=== PATIENT | female | born 1995 | race Caucasian/White ===

== ENCOUNTER 2017-06-07 01:16 | Emergency (ER) | payer MEDICAID ==
[2017-06-07 01:21] VITALS: BP 123/79
--- NOTE | 2017-06-07 01:37 | EDPHY ---
H & P Stated Complaint: ETOH Time Seen by Provider: 06/07/17 01:26 HPI/ROS: Chief Complaint: Alcohol intoxication HPI: 22-year-old female being brought in for friends for alcohol intoxication. They states there is concerned because the never seen her this intoxicated before. She has not been vomiting. She did not pass out. No falls. Did not hit her head. She has been ambulating unassisted. Has a history of anemia but no other medical problems. Currently without complaint. ROS: 10 point Review of Systems is negative except as noted in the HPI. PMH: Anemia Social History: No smoking, occasional alcohol, no recreational drug use Family History: non-contributory Physical Exam: Gen: Awake, Alert, No Distress, slurred speech HEENT: Nose: no rhinorrhea Eyes: PERRLA, EOMI Mouth: Moist mucosa Neck: Supple, no JVD Chest: nontender, lungs clear to auscultation Heart: S1, S2 normal, no murmur Abd: Soft, non-tender, no guarding Back: no CVA tenderness, no midline tenderness Ext: no edema, non-tender Skin: no rash Neuro: CN II-XII intact, Sensation grossly intact, Strength 5/5 in bilateral upper and lower extremities - Personal History LMP (Females 10-55): Now Current Tetanus Diphtheria and Acellular Pertussis (TDAP): Yes - Medical/Surgical History Hx Asthma: No Hx Chronic Respiratory Disease: No Hx Diabetes: No Hx Cardiac Disease: No Hx Renal Disease: No Hx Cirrhosis: No Hx Alcoholism: No Hx HIV/AIDS: No Hx Splenectomy or Spleen Trauma: No - Social History Smoking Status: Never smoked Constitutional: Initial Vital Signs Temperature (C) 36.8 C 06/07/17 01:20 Heart Rate 85 06/07/17 01:20 Respiratory Rate 18 06/07/17 01:20 Blood Pressure 123/79 H 06/07/17 01:20 O2 Sat (%) 97 06/07/17 01:20 O2 Delivery Mode Room Air Allergies/Adverse Reactions: No Known Allergies Allergy (Unverified 06/07/17 01:17) Medical Decision Making ED Course/Re-evaluation: Patient is now awake and appropriate. Ambulating unassisted to the bathroom. No current complaints. Patient is tolerating oral fluids. Patient is ready for discharge with sober ride. Departure - Departure Disposition: Home, Routine, Self-Care Clinical Impression: Alcoholic intoxication Condition: Good Instructions: Alcohol Intoxication (ED) Referrals: Patient,NotPresent [Primary Care Provider] - As per Instructions
== END 2017-06-07 02:37 | disposition home or self-care (01) ==
DX: F10.129 Alcohol abuse with intoxication, unspecified (principal)

== ENCOUNTER 2018-04-03 01:43 | Emergency (ER) | payer OTHER, MEDICAID ==
[2018-04-03] MEDS ORDERED: ONDANSETRON 4 MG/2 ML VIAL IVP ONE (01:50)
[2018-04-03] MEDS ORDERED: NS 1,000 ML IV ONE (01:50)
[2018-04-03] MEDS ORDERED: ONDANSETRON 4 MG/2 ML VIAL ONE (01:51)
--- NOTE | 2018-04-03 01:53 | EDPHY ---
H & P Time Seen by Provider: 04/03/18 01:51 HPI/ROS: HPI CHIEF COMPLAINT: Alcohol Intoxication , vomiting, fall, facial injury HISTORY OF PRESENT ILLNESS: 23-year-old female she presents emergency room by private vehicle for acute alcohol intoxication. Reported by her friends that she wanted legal demetra's this evening and drank multiple margaritas. She now arrives to the emergency room highly intoxicated with alcohol on vomiting. At some point she did fall as she has significant abrasions to the right side her face and a right eyebrow hematoma. No laceration. Patient arrives highly intoxicated. History and review of systems limited due to patient's mental state. Past Medical History: Denies medical history Past Surgical History: Denies surgical history Social History: Alcohol this evening large amount. States she had multiple margaritas. Family History: Noncontributory ROS REVIEW OF SYSTEMS: Limited due to alcohol intoxication Exam Constitutional Intoxicated, triage nursing summary reviewed, vital signs reviewed, Sleepy, smells of alcohol Eyes normal conjunctivae and sclera, horizontal beating nystagmus consistent acute alcohol intoxication, otherwise pupils equal and react to light HENT head/neck: Right eyebrow hematoma. Multiple right-sided facial abrasions otherwise midface stable. Dentition intact, moist mucus membranes, no epistaxis, neck supple/ no meningismus, no raccoon eyes. Respiratory clear to auscultation bilaterally, normal breath sounds, no respiratory distress, no wheezing. Cardiovascular rate normal, regular rhythm, no murmur, no edema, distal pulses normal. Gastrointestinal soft, non-tender, no rebound, no guarding, normal bowel sounds, no distension, no pulsatile mass. Genitourinary no CVA tenderness. Musculoskeletal no midline vertebral tenderness, full range of motion, no calf swelling, no tenderness of extremities, no meningismus, good pulses, neurovascularly intact. Skin pink, warm, & dry, no rash, skin atraumatic. Neurologic sleepy, intoxicated with alcohol,, alert and oriented x 3, AAOx3, moves all 4 extremities equally, motor intact, sensory intact, CN II-XII intact , , normal vision, normal speech. Psychiatric normal mood/affect. Heme/Lymph/Immune no lymphadenopathy. Differential Diagnosis: Includes but is not limited to in a particular order acute alcohol intoxication, alcohol abuse, dehydration, electrolyte abnormality , nausea vomiting from acute alcohol intoxication Medical Decision Making: Plan for this patient IV establishment IV fluid bolus Zofran for nausea, check basic electrolytes, serum alcohol level, proceed with CT scan head without contrast and cervical spine without contrast given fall trauma alcohol intoxication. Re-evaluation: Serum alcohol level 283 at 3:22 a.m.. 0355: This patient had a CT scan head without contrast and CT cervical spine without contrast for trauma in the setting of acute alcohol intoxication. The patient fell and has a hematoma to her right eyebrow and abrasions of the right side her face. The CT scans are faxed to me at 3:29 a.m.. And by direct radiology and they are negative for acute traumatic injury. Patient re-evaluated 7:01 a.m. Patient was up ambulatory to the bathroom with a steady gait. She is now clinically sober she is sleepy but I do feel she is safe for discharge. Vital signs are stable. The patient had a CT scan head and neck without contrast for trauma as she fell and sustained a right eyebrow hematoma and right facial abrasions. The CT scans were negative for acute traumatic injury called to me by [facility]iology. I did certified genetic counselor the patient on her alcohol use as this was the 2nd ER visit for this. Source: Patient - Medical/Surgical History Hx Asthma: No Hx Chronic Respiratory Disease: No Hx Diabetes: No Hx Cardiac Disease: No Hx Renal Disease: No Hx Cirrhosis: No Hx Alcoholism: No Hx HIV/AIDS: No Hx Splenectomy or Spleen Trauma: No - Social History Smoking Status: Never smoked Constitutional: Initial Vital Signs Temperature (C) 36.6 C 04/03/18 01:50 Heart Rate 112 H 04/03/18 01:50 Respiratory Rate 20 04/03/18 01:50 Blood Pressure 109/65 04/03/18 01:50 O2 Sat (%) 96 04/03/18 01:50 O2 Delivery Mode Room Air O2 (L/minute) 2 Allergies/Adverse Reactions: No Known Allergies Allergy (Unverified 04/03/18 01:59) Home Medications: Medication Instructions Recorded NK [No Known Home Meds] 04/03/18 Medical Decision Making - Data Points Laboratory Results: Laboratory Results 04/03/18 01:58 04/03/18 01:58 04/03/18 04/03/18 01:58 01:58 WBC 8.74 10^3/uL 10^3/uL (3.80-9.50) RBC 5.04 10^6/uL 10^6/uL (4.18-5.33) Hgb 15.3 g/dL g/dL (12.6-16.3) Hct 44.8 % % (38.0-47.0) MCV 88.9 fL fL (81.5-99.8) MCH 30.4 pg pg (27.9-34.1) MCHC 34.2 g/dL g/dL (32.4-36.7) RDW 12.7 % % (11.5-15.2) Plt Count 277 10^3/uL 10^3/uL (150-400) MPV 10.1 fL fL (8.7-11.7) Neut % (Auto) 47.2 % % (39.3-74.2) Lymph % (Auto) 46.7 % H % (15.0-45.0) [place] % (Auto) 5.1 % % (4.5-13.0) Eos % (Auto) 0.2 % L % (0.6-7.6) Baso % (Auto) 0.7 % % (0.3-1.7) Nucleat RBC Rel Count 0.0 % % (0.0-0.2) Absolute Neuts (auto) 4.12 10^3/uL 10^3/uL (1.70-6.50) Absolute Lymphs (auto) 4.08 10^3/uL H 10^3/uL (1.00-3.00) Absolute Monos (auto) 0.45 10^3/uL 10^3/uL (0.30-0.80) Absolute Eos (auto) 0.02 10^3/uL L 10^3/uL (0.03-0.40) Absolute Basos (auto) 0.06 10^3/uL 10^3/uL (0.02-0.10) Absolute Nucleated RBC 0.00 10^3/uL 10^3/uL (0-0.01) Immature Gran % 0.1 % % (0.0-1.1) Immature Gran # 0.01 10^3/uL 10^3/uL (0.00-0.10) Sodium 143 mEq/L mEq/L (135-145) Potassium 3.4 mEq/L L mEq/L (3.5-5.2) Chloride 107 mEq/L mEq/L (97-110) Carbon Dioxide 22 mEq/l mEq/l (22-31) Anion Gap 14 mEq/L mEq/L (6-14) BUN 7 mg/dL mg/dL (7-23) Creatinine 0.7 mg/dL mg/dL (0.6-1.0) Estimated GFR > 60 Glucose 97 mg/dL mg/dL (70-100) Calcium 9.4 mg/dL mg/dL (8.5-10.4) Ethyl Alcohol 283 mg/dL H mg/dL (0-10) Medications Given: Discontinued Medications Sodium Chloride (Ns) 1,000 mls @ 0 mls/hr IV ONCE ONE PRN Reason: Wide Open Stop: 04/03/18 01:51 Last Admin: 04/03/18 01:57 Dose: 1,000 mls Ondansetron HCl (Zofran) 4 mg IVP EDNOW ONE Stop: 04/03/18 01:51 Last Admin: 04/03/18 01:57 Dose: 4 mg Promethazine HCl (Phenergan) 6.25 mg IVP ONCE ONE Stop: 04/03/18 02:29 Last Admin: 04/03/18 02:28 Dose: 6.25 mg Departure - Departure Disposition: Home, Routine, Self-Care Clinical Impression: Alcohol intoxication, Traumatic hematoma of eyebrow, Facial abrasion Condition: Good Instructions: Alcohol Intoxication (ED) Referrals: Patient,NotPresent [Primary Care Provider] - As per Instructions
[2018-04-03 02:03] LABS: PLATELET COUNT 277 10^3/uL (150-400)
[2018-04-03] MEDS ORDERED: PROMETHAZINE HCL 25 MG/ML INJ ONE (02:26)
[2018-04-03] MEDS ORDERED: PROMETHAZINE HCL 25 MG/ML INJ IVP ONE (02:28)
[2018-04-03 07:22] VITALS: BP 90/55
== END 2018-04-03 07:21 | disposition home or self-care (01) ==
DX: S00.83XA Contusion of other part of head, initial encounter (principal); S00.91XA Abrasion of unspecified part of head, initial encounter; F10.920 Alcohol use, unspecified with intoxication, uncomplicated; W19.XXXA Unspecified fall, initial encounter; Y90.8 Blood alcohol level of 240 mg/100 ml or more
CPT/HCPCS: 96374; G0480; J2405; J2550